=== PATIENT | female | born 1960 | race African-American/Black ===

== ENCOUNTER 2018-10-23 23:43 | Inpatient (IN) | payer OTHER ==
[2018-10-23] MEDS ORDERED: IPRATROPIUM/ALBUTEROL 0.5-2.5 MG/3 ML AMPUL NEB ONE (23:59)
[2018-10-24] MEDS ORDERED: IPRATROPIUM/ALBUTEROL 0.5-2.5 MG/3 ML AMPUL NEB ONE
[2018-10-24] MEDS ORDERED: ALBUTEROL SULFATE 0.083% NEB 2.5 MG/3 ML AMPUL NEB ONE
[2018-10-24] MEDS ORDERED: NORMAL SALINE 1000 ML 1,000 ML IV ONE
[2018-10-24] MEDS ORDERED: METHYLPREDNISOLONE INJ 125 MG/2 ML SDV IV ONE
[2018-10-24] MEDS ORDERED: MAGNESIUM SULFATE/D5W 1 GM/100 ML RTUPB IV ONE (00:01)
--- NOTE | 2018-10-24 00:03 | ER Document Report ---
ED General - General Chief Complaint: Shortness Of Breath Stated Complaint: SHORTNESS OF BREATH Time Seen by Provider: 10/24/18 00:00 Primary Care Provider: STAN BENAVIDES MD [ACTIVE STAFF] - Follow up as needed Cannot obtain history due to: Unstable vital signs Notes: Patient is a 58-year-old female with a past medical history of hypertension, diabetes, asthma, presents with 2 days of progressively worsening shortness of breath that became much worse in the past 4 to 5 hours. History is limited from the patient as she is in severe respiratory distress at the time of my initial assessment and unable to speak in complete sentences. Family at the bedside states that the patient has a long-standing history of asthma but is noncompliant with her meds occasions. They report the patient has been short of breath for the past 2 days but it became much worse in the past several hours. She does not have a nebulizer machine with her but did try her albuterol inhaler without relief. No obvious worsening factor. She has not had fever or infectious symptoms. She has a history of asthma exacerbations in the past but is never required intubation or hospitalization by her report. TRAVEL OUTSIDE OF THE [place] IN LAST 30 DAYS: No - Related Data Allergies/Adverse Reactions: amoxicillin [From Augmentin] Allergy (Verified 10/24/18 00:15) clavulanic acid [From Augmentin] Allergy (Verified 10/24/18 00:15) lisinopril Allergy (Verified 10/24/18 00:15) Past Medical History - General Information source: Relative Cannot obtain history due to: Unstable vital signs - Social History Smoking Status: Never Smoker Frequency of alcohol use: None Drug Abuse: None Lives with: Family Family History: Reviewed & Not Pertinent Review of Systems - Review of Systems Notes: Constitutional: Negative for fever. HENT: Negative for sore throat. Eyes: Negative for visual changes. Cardiovascular: Negative for chest pain. Respiratory: Positive for shortness of breath. Gastrointestinal: Negative for abdominal pain, vomiting or diarrhea. Genitourinary: Negative for dysuria. Musculoskeletal: Negative for back pain. Skin: Negative for rash. Neurological: Negative for headaches, weakness or numbness. 10 point ROS negative except as marked above and in HPI. Physical Exam - Vital signs Vitals: Pulse Ox 98 10/23/18 23:54 Interpretation: Tachycardic, Hypoxic, Tachypneic Notes: PHYSICAL EXAMINATION: GENERAL: Appears unwell, in moderate to severe respiratory distress HEAD: Atraumatic, normocephalic. EYES: Pupils equal round and reactive to light, extraocular movements intact, sclera anicteric, conjunctiva are normal. ENT: nares patent, oropharynx clear without exudates. Mildly dry mucous membranes. NECK: Normal range of motion, supple without lymphadenopathy LUNGS: Moderate to severe respiratory distress, supraclavicular retractions, diminished air movement in all lung valenzuela with coarse expiratory wheezing throughout. HEART: Regular tachycardia without murmurs ABDOMEN: Soft, nontender, normoactive bowel sounds. No guarding, no rebound. No masses appreciated. EXTREMITIES: no pitting or edema. No cyanosis. NEUROLOGICAL: No focal neurological deficits. Moves all extremities spontaneously and on command. PSYCH: Anxious but appropriate to situation SKIN: Warm, Dry, normal turgor, no rashes or lesions noted. Course - Re-evaluation Re-evalutation: 10/24/18 00:01 Patient presents in moderate respiratory distress, unable to speak in a full sentence, retracting in the supraclavicular space, unable to assess intercostal space secondary to obesity. Patient has diffuse expiratory wheezing and dimini shed air movement in all lung valenzuela consistent with a moderate to severe asthma exacerbation. She is visiting from out of town. Patient is saturating 91% on room air. She was placed on supplemental oxygen and continuous albuterol ipratropium nebulizers were immediately gone. IV access will be established and patient will be initiated on magnesium and Solu-Medrol as well as IV fluids. Labs and chest x-ray will be obtained. Patient has a history of asthma and apparently is noncompliant with her medications per family at the bedside. She denies any history of intubation or hospitalization secondary to her asthma. She is in guarded condition, will be reassessed at regular intervals. 10/24/18 00:38 Patient's work of breathing has not significantly improved on continuous nebulizers. She will be transition to BiPAP. Fluids, magnesium ongoing. 10/24/18 01:04 Patient is much improved on BiPAP. Ongoing scant wheezing throughout although air movement is markedly improved. Chest x-ray is clear without any evidence of acute infiltrate, cardiomegaly or pulmonary edema. Patient will require hospitalization given the degree of her exacerbation and is in agreement with this plan. 10/24/18 01:29 I discussed with the hospitalist Dr. Goldsmith who is accepted patient for admission. - Vital Signs Vital signs: Temp Pulse Resp BP Pulse Ox 99 F 33 H 164/92 H 100 10/23/18 23:57 10/24/18 01:03 10/24/18 01:03 10/24/18 01:03 - Laboratory Result Diagrams: 10/24/18 00:08 10/24/18 00:08 Laboratory results interpreted by me: 10/24/18 10/24/18 00:08 00:08 Hgb 11.9 L RDW 15.6 H Potassium 3.2 L Carbon Dioxide 32 H BUN 21 H Glucose 120 H - Diagnostic Test Radiology reviewed: Image reviewed, Reports reviewed Radiology results interpreted by me: 10/24/18 01:04 Chest x-ray: No acute infiltrate or pneumothorax Critical Care Note - Critical Care Note Total time excluding time spent on procedures (mins): 40 Comments: Critical care time spent obtaining history from patient or surrogate, development of treatment plan with patient or surrogate, evaluation of patient's response to treatment, examination of patient, ordering and performing treatments and interventions, ordering and review of laboratory studies, re- evaluation of patient's condition, ordering and review of radiographic studies and review of old charts Discharge - Discharge Clinical Impression: Respiratory distress Asthma exacerbation Qualifiers: Asthma severity: severe Asthma persistence: persistent Qualified Code(s): J45. 51 - Severe persistent asthma with (acute) exacerbation Condition: Fair Disposition: ADMITTED INPATIENT Admitting Provider: Agus (Hospitalist) Unit Admitted: IMCU Referrals: STAN BENAVIDES MD [ACTIVE STAFF] - Follow up as needed
[2018-10-24] MEDS: MAGNESIUM SULFATE/D5W 1 GM/100 ML RTUPB IV SCH ×2 (00:05→00:18)
[2018-10-24 00:34] LABS: ABSOLUTE EOSINOPHILS # (AUTO) 0.1 10^3/uL (0.0-0.6); ABSOLUTE LYMPHOCYTES (AUTO) 1.4 10^3/uL (0.5-4.7); ABSOLUTE MONOCYTES (AUTO) 0.6 10^3/uL (0.1-1.4); ABSOLUTE NEUT (AUTO) 4.4 10^3/uL (1.7-8.2); BASOPHILS % (AUTO) 0.5 % (0-2); EOSINOPHILS % (AUTO) 2.1 % (0-6); HEMOGLOBIN 11.9 g/dL (12.0-15.5); LYMPHOCYTES % (AUTO) 21.2 % (13-45); MEAN CORPUSCULAR HEMOGLOBIN 28.2 pg (27.0-33.4); MEAN CORPUSCULAR HGB CONC 32.2 g/dL (32.0-36.0); MEAN CORPUSCULAR VOLUME 88 fl (80-97); MONOCYTES % (AUTO) 9.6 % (3-13); PLATELET COUNT 290 10^3/uL (150-450); RED BLOOD COUNT 4.22 10^6/uL (3.72-5.28); RED CELL DISTRIBUTION WIDTH 15.6 % (11.5-14.0); SEGMENTED NEUTROPHILS % (AUTO) 66.6 % (42-78); TOTAL CELLS COUNTED % (AUTO) 100 %; WHITE BLOOD COUNT 6.6 10^3/uL (4.0-10.5)
--- NOTE | 2018-10-24 00:58 | RADIOLOGY REPORT (SQ) ---
XR CHEST 1 VIEW HISTORY: Shortness of breath. COMPARISON: None. FINDINGS: The heart size is normal. No consolidation, pleural effusion, or pneumothorax is seen. There are no acute bony findings. IMPRESSION: No evidence of acute cardiopulmonary disease.
[2018-10-24 01:08] LABS: ANION GAP 12 (5-19); BLOOD UREA NITROGEN 21 mg/dL (7-20); CALCIUM 9.1 mg/dL (8.4-10.2); CARBON DIOXIDE 32 mmol/L (22-30); CHLORIDE 99 mmol/L (98-107); GLUCOSE 120 mg/dL (75-110); POTASSIUM 3.2 mmol/L (3.6-5.0); SODIUM 142.7 mmol/L (137-145)
[2018-10-24] MEDS ORDERED: HYDRALAZINE HCL INJ/PF 20 MG/1 ML SDV IV PRN (01:21)
[2018-10-24] MEDS ORDERED: FUROSEMIDE INJ/PF 40 MG/4 ML SDV IV ONE (01:22)
[2018-10-24] MEDS ORDERED: IPRATROPIUM/ALBUTEROL 0.5-2.5 MG/3 ML AMPUL NEB PRN (01:22)
[2018-10-24] MEDS ORDERED: ACETAMINOPHEN 325 MG TABLET PO PRN (01:22)
[2018-10-24] MEDS: LEVOFLOXACIN 750 MG/D5W RTU 750 MG/150 ML RTUPB IV SCH ×2 (01:52→21:30)
[2018-10-24] MEDS: CHLORPHENIRAMINE MALEATE 4 MG TABLET PO SCH ×4 (01:53→21:10)
[2018-10-24] MEDS: POTASSI CL 20 MEQ/50 ML RIDER 20 MEQ/50 ML RTUPB IV SCH ×2 (02:03→03:46)
--- NOTE | 2018-10-24 05:25 | PDOC H&P ---
History of Present Illness Admission Date/PCP: 10/24/18 01:46 Patient complains of: Shortness of breath History of Present Illness: FREDDY SANCHEZ is a 58 year old female with a past medical history of hypertension, diabetes, asthma, obstructive sleep apnea and obesity. Patient presents with 48 hours of worsening shortness of breath associated with nonproductive cough followed by a known trigger of tobacco smoke. Patient admits rhinorrhea but denies sore throat or uncontrolled GERD. In the emergency room she is severely tachypneic with use of accessory muscles and retractions she receives albuterol, Atrovent, magnesium, Solu-Medrol and ultimately requ iring BiPAP with oxygen. Patient admits to missing several medications recently. She denies a history of requiring intubation. Past Medical History Cardiac Medical History: Reports: Congestive Heart Failure, Hypertension Pulmonary Medical History: Reports: Asthma Endocrine Medical History: Reports: Diabetes Mellitus Type 2 GI Medical History: Reports: Gastroesophageal Reflux Disease Past Surgical History Past Surgical History: Reports: Hysterectomy, Tonsillectomy Social History Information Source: Patient, Emergency Med Personnel, [facility] Records Lives with: Family Smoking Status: Former Smoker Frequency of Alcohol Use: None Hx Recreational Drug Use: No Drugs: None Hx Prescription Drug Abuse: No - Advance Directive Resuscitation Status: Full Code Family History Family History: COPD Parental Family History Reviewed: Yes Children Family History Reviewed: Yes Sibling(s) Family History Reviewed.: Yes Medication/Allergy Home Medications: Albuterol Sulfate [Proair Hfa Inhalation Aerosol 8.5 gm Mdi] 1 puff IH Q4 PRN 10/24/18 Budesonide/Formoterol Fumarate [Symbicort Hfa 80-4.5 Mcg Inhaler 6.9 gm] 2 puff IH DAILY 10/24/18 Cetirizine HCl [Zyrtec 10 mg Tablet] 1 tab PO DAILY 10/24/18 Esomeprazole Mag Trihydrate [Nexium] 40 mg PO DAILY 10/24/18 Hydralazine/Hydrochlorothiazid [Hydra-Zide 25-25 Capsule] 1 each PO DAILY 10/24/18 Hydralazine/Hydrochlorothiazid [Hydra-Zide 25-25 Capsule] 1 each PO DAILY 10/24/18 Metformin HCl 500 mg PO DAILY 10/24/18 Metoprolol Tartrate [Lopressor 25 mg Tablet] 25 mg PO DAILY 10/24/18 Montelukast Sodium [Singulair 10 mg Tablet] 10 mg PO QHS 10/24/18 Rosuvastatin Calcium [Crestor 20 mg Tablet] 20 mg PO DAILY 10/24/18 Telmisartan [Micardis 20 mg Tablet] 20 mg PO DAILY 10/24/18 Allergies/Adverse Reactions: amoxicillin [From Augmentin] Allergy (Verified 10/24/18 00:15) clavulanic acid [From Augmentin] Allergy (Verified 10/24/18 00:15) lisinopril Allergy (Verified 10/24/18 00:15) Review of Systems Constitutional: ABSENT: chills, fever(s), headache(s), weight gain, weight loss Eyes: ABSENT: visual disturbances Ears: ABSENT: hearing changes Cardiovascular: ABSENT: chest pain, dyspnea on exertion, edema, orthropnea, palpitations Respiratory: ABSENT: cough, hemoptysis Gastrointestinal: ABSENT: abdominal pain, constipation, diarrhea, hematemesis, hematochezia, nausea, vomiting Genitourinary: ABSENT: dysuria, hematuria Musculoskeletal: ABSENT: joint swelling Integumentary: ABSENT: rash, wounds Neurological: ABSENT: abnormal gait, abnormal speech, confusion, dizziness, focal weakness, syncope Psychiatric: ABSENT: anxiety, depression, homidical ideation, suicidal ideation Endocrine: ABSENT: cold intolerance, heat intolerance, polydipsia, polyuria Hematologic/Lymphatic: ABSENT: easy bleeding, easy bruising Physical Exam Vital Signs: Temp Pulse Resp BP Pulse Ox 98.4 F 100 20 149/81 H 100 10/24/18 03:07 10/24/18 03:07 10/24/18 03:07 10/24/18 03:07 10/24/18 03:07 Intake & Output 10/22/18 10/23/18 10/24/18 11:59 11:59 11:59 Intake Total 1315 Output Total 900 Balance 415 Weight 131.995 kg General appearance: PRESENT: cooperative, mild distress, morbidly obese. ABSENT: disheveled Head exam: PRESENT: atraumatic, normocephalic Eye exam: PRESENT: conjunctiva pink, EOMI, PERRLA. ABSENT: scleral icterus Ear exam: PRESENT: normal external ear exam Mouth exam: PRESENT: moist, tongue midline Neck exam: ABSENT: carotid bruit, JVD, lymphadenopathy, thyromegaly Respiratory exam: PRESENT: accessory muscle use, clear to auscultation aurora, crackles, retraction, symmetrical, tachypnea, wheezes. ABSENT: rhonchi Cardiovascular exam: PRESENT: +S1, +S2, tachycardia Pulses: PRESENT: normal dorsalis pedis pul Vascular exam: PRESENT: normal capillary refill GI/Abdominal exam: PRESENT: normal bowel sounds, soft. ABSENT: distended, guarding, mass, organolmegaly, rebound, tenderness Rectal exam: PRESENT: deferred Extremities exam: PRESENT: full ROM, +1 edema. ABSENT: calf tenderness Neurological exam: PRESENT: alert, awake, oriented to person, oriented to place, oriented to time, oriented to situation, CN II-XII grossly intact. ABSENT: motor sensory deficit Psychiatric exam: PRESENT: appropriate affect, normal mood. ABSENT: homicidal ideation, suicidal ideation Skin exam: PRESENT: dry, intact, warm. ABSENT: cyanosis, rash Results Laboratory Results: 10/24/18 00:08 10/24/18 00:08 10/24/18 10/24/18 00:08 00:08 WBC 6.6 RBC 4.22 Hgb 11.9 L Hct 37.0 MCV 88 MCH 28.2 MCHC 32.2 RDW 15.6 H Plt Count 290 Seg Neutrophils % 66.6 Lymphocytes % 21.2 Monocytes % 9.6 Eosinophils % 2.1 Basophils % 0.5 Absolute Neutrophils 4.4 Absolute Lymphocytes 1.4 Absolute Monocytes 0.6 Absolute Eosinophils 0.1 Absolute Basophils 0.0 Sodium 142.7 Potassium 3.2 L Chloride 99 Carbon Dioxide 32 H Anion Gap 12 BUN 21 H Creatinine 0.76 Est GFR ( Amer) > 60 Est GFR (Non-Af Amer) > 60 Glucose 120 H Calcium 9.1 10/24/18 00:08 NT-Pro-B Natriuret Pep < 11 Impressions: Chest X-Ray 10/24/18 00:01 IMPRESSION: No evidence of acute cardiopulmonary disease. Assessment and Plan - Diagnosis (1) Asthma exacerbation Qualifiers: Asthma severity: severe Asthma persistence: persistent Qualified Code(s): J45.51 - Severe persistent asthma with (acute) exacerbation Is this a current diagnosis for this admission?: Yes Plan: Chlorpheniramine, Flonase, prednisone, albuterol and Atrovent, supplemental oxygen with BiPAP. (2) Respiratory distress Is this a current diagnosis for this admission?: Yes Plan: Secondary to #1 and possible bronchitis. Empiric antibiotics. Supportive care (3) Diabetes Qualifiers: Diabetes mellitus type: type 2 Is this a current diagnosis for this admission?: Yes Plan: Outpatient regimen of Humalog sliding scale (4) Hypertension Is this a current diagnosis for this admission?: Yes Plan: Outpatient regiment with hydralazine as needed (5) Sleep apnea Is this a current diagnosis for this admission?: Yes Plan: BiPAP and education
[2018-10-24] MEDS: HEPARIN SOD (PORCINE) 5,000 UNIT/ML 1 ML SYRINGE SUBCUT SCH ×3 (05:37→21:29)
[2018-10-24] MEDS: METHYLPREDNISOLONE INJ 125 MG/2 ML SDV IV SCH ×2 (05:37→14:13)
[2018-10-24] MEDS ORDERED: DEXTROSE 40% GEL 15 GM TUBE PO PRN (07:00)
[2018-10-24] MEDS ORDERED: DEXTROSE 50%-WATER SYRINGE 12.5 GM/25 ML DOSE IV PRN (07:00)
[2018-10-24] MEDS ORDERED: GLUCAGON,HUMAN RECOMB 1 MG INJ IM PRN (07:00)
[2018-10-24] MEDS ORDERED: DEXTROSE 40% GEL 15 GM TUBE X 2 PO PRN (07:00)
[2018-10-24] MEDS ORDERED: DEXTROSE 50%-WATER SYRINGE 25 GM/50 ML DOSE IV PRN (07:00)
[2018-10-24] MEDS ORDERED: IPRATROPIUM/ALBUTEROL 0.5-2.5 MG/3 ML AMPUL NEB SCH (08:00)
--- NOTE | 2018-10-24 09:41 | EKG REPORT ---
SEVERITY:- ABNORMAL ECG - SINUS RHYTHM LEFT VENTRICULAR HYPERTROPHY : Confirmed by: Cecy Suarez MD 24-Oct-2018 09:40:38
[2018-10-24] MEDS: METOPROLOL TARTRATE 25 MG TABLET PO SCH (09:42)
[2018-10-24] MEDS: FLUTICASONE NASAL SPRAY 50 MCG/SPRY 120 SPRAY/16 GM NASL SCH ×2 (09:43→21:29)
[2018-10-24] MEDS: METFORMIN HCL 500 MG TABLET PO SCH (09:43)
[2018-10-24] MEDS: CETIRIZINE 10 MG TABLET PO SCH (09:43)
[2018-10-24] MEDS: HYDROCHLOROTHIAZIDE 25 MG TABLET PO SCH (09:43)
[2018-10-24] MEDS: PANTOPRAZOLE SODIUM 40 MG TABLET.DR PO SCH (09:43)
[2018-10-24] MEDS: LOSARTAN POTASSIUM 25 MG TABLET PO SCH (09:43)
[2018-10-24 09:47] LABS: ANION GAP 15 (5-19); BLOOD UREA NITROGEN 15 mg/dL (7-20); CALCIUM 9.4 mg/dL (8.4-10.2); CARBON DIOXIDE 29 mmol/L (22-30); CHLORIDE 99 mmol/L (98-107); GLUCOSE 192 mg/dL (75-110); POTASSIUM 4.1 mmol/L (3.6-5.0); SODIUM 143.4 mmol/L (137-145)
[2018-10-24] MEDS ORDERED: [UNRECOGNIZED DRUG - OTHER] PO SCH (10:00)
[2018-10-24] MEDS ORDERED: HYDRALAZINE PO SCH (10:00)
[2018-10-24] MEDS ORDERED: HYDRALAZINE HCL 25 MG TABLET PO SCH (10:00)
[2018-10-24] MEDS ORDERED: HYDROCHLOROTHIAZIDE PO SCH (10:00)
[2018-10-24] MEDS: INSULIN LISPRO 100 UNIT/ML 3 ML VIAL SUBCUT SCH ×4 (12:48→21:29)
[2018-10-24] MEDS: IPRATROPIUM/ALBUTEROL 0.5-2.5 MG/3 ML AMPUL NEB SCH ×4 (13:43→23:57)
--- NOTE | 2018-10-24 14:58 | PDOC PROGRESS REPORT ---
Subjective Progress Note for:: 10/24/18 Subjective:: This is a 58 year old female with a past medical history of hypertension, diabetes, asthma, obstructive sleep apnea and obesity who presented with increasing SOB and was admitted earlier this morning. She was noted to be tachypneic, hypoxic and had severe bilateral wheezes and was admitted for severe asthma exacerbation. On encounter, she is slightly tachypneic but saturating well on BIPAP. She says her SOB has slightly improved. She has significant bilateral wheezes. Reason For Visit: COPD EXACERBATION,PNEUMONIA Physical Exam Vital Signs: Temp Pulse Resp BP Pulse Ox 99.2 F 96 14 151/98 H 96 10/24/18 12:13 10/24/18 13:43 10/24/18 13:43 10/24/18 12:13 10/24/18 13:43 Intake & Output 10/23/18 10/24/18 10/25/18 06:59 06:59 06:59 Intake Total 1365 Output Total 2225 400 Balance -860 -400 Weight 289 lb 3.944 oz General appearance: PRESENT: mild distress, obese Head exam: PRESENT: atraumatic, normocephalic Eye exam: PRESENT: conjunctiva pink, EOMI, PERRLA. ABSENT: scleral icterus Ear exam: PRESENT: normal external ear exam Mouth exam: PRESENT: moist, tongue midline Neck exam: ABSENT: carotid bruit, JVD, lymphadenopathy, thyromegaly Respiratory exam: PRESENT: rhonchi, wheezes. ABSENT: rales Cardiovascular exam: PRESENT: RRR. ABSENT: diastolic murmur, rubs, systolic murmur Pulses: PRESENT: normal dorsalis pedis pul GI/Abdominal exam: PRESENT: normal bowel sounds, soft. ABSENT: distended, guarding, mass, organolmegaly, rebound, tenderness Rectal exam: PRESENT: deferred Extremities exam: PRESENT: +1 edema Neurological exam: PRESENT: alert, awake, oriented to person, oriented to place, oriented to time, oriented to situation, CN II-XII grossly intact. ABSENT: motor sensory deficit Results Laboratory Results: 10/24/18 00:08 10/24/18 09:13 10/24/18 10/24/18 10/24/18 00:08 00:08 09:13 WBC 6.6 RBC 4.22 Hgb 11.9 L Hct 37.0 MCV 88 MCH 28.2 MCHC 32.2 RDW 15.6 H Plt Count 290 Seg Neutrophils % 66.6 Lymphocytes % 21.2 Monocytes % 9.6 Eosinophils % 2.1 Basophils % 0.5 Absolute Neutrophils 4.4 Absolute Lymphocytes 1.4 Absolute Monocytes 0.6 Absolute Eosinophils 0.1 Absolute Basophils 0.0 Sodium 142.7 143.4 Potassium 3.2 L 4.1 Chloride 99 99 Carbon Dioxide 32 H 29 Anion Gap 12 15 BUN 21 H 15 Creatinine 0.76 0.78 Est GFR ( Amer) > 60 > 60 Est GFR (Non-Af Amer) > 60 > 60 Glucose 120 H 192 H Calcium 9.1 9.4 Magnesium 2.2 TSH 10/24/18 09:13 WBC RBC Hgb Hct MCV MCH MCHC RDW Plt Count Seg Neutrophils % Lymphocytes % Monocytes % Eosinophils % Basophils % Absolute Neutrophils Absolute Lymphocytes Absolute Monocytes Absolute Eosinophils Absolute Basophils Sodium Potassium Chloride Carbon Dioxide Anion Gap BUN Creatinine Est GFR ( Amer) Est GFR (Non-Af Amer) Glucose Calcium Magnesium TSH 0.45 L 10/24/18 00:08 NT-Pro-B Natriuret Pep < 11 Impressions: Chest X-Ray 10/24/18 00:01 IMPRESSION: No evidence of acute cardiopulmonary disease. Assessment and Plan - Diagnosis (1) Acute respiratory failure with hypoxia Is this a current diagnosis for this admission?: Yes Plan: Secondary to severe asthma exacerbation. On BIPAP. (2) Asthma exacerbation Qualifiers: Asthma severity: severe Asthma persistence: persistent Qualified Code(s): J45.51 - Severe persistent asthma with (acute) exacerbation Is this a current diagnosis for this admission?: Yes Plan: Currently on solumedrol 125 mg q8. Adjust solumedrol to 40 mg q8h. Revise and increase breathing treatment to duoneb q4 scheduled. (3) Hypertension Is this a current diagnosis for this admission?: Yes Plan: Continue HCTZ and losartan. Hold lopressor for now. - Time Time Spent with patient: 25-34 minutes
[2018-10-24 15:47] LABS: FREE T3 3.59 pg/mL (2.77-5.27); FREE T4 (FREE THYROXINE) 1.15 ng/dL (0.78-2.19)
[2018-10-24] MEDS: METHYLPREDNISOLONE INJ 40 MG/1 ML SDV IV SCH ×2 (15:47→21:29)
[2018-10-24] MEDS ORDERED: CHLORPHENIRAMINE MALEATE 4 MG TABLET ONE (20:45)
[2018-10-24] MEDS: MONTELUKAST SODIUM 10 MG TABLET PO SCH (21:29)
[2018-10-24] MEDS: ATORVASTATIN CALCIUM 40 MG TABLET PO SCH (21:29)
[2018-10-25] MEDS: IPRATROPIUM/ALBUTEROL 0.5-2.5 MG/3 ML AMPUL NEB SCH ×5 (03:50→19:55)
[2018-10-25] MEDS: METHYLPREDNISOLONE INJ 40 MG/1 ML SDV IV SCH (05:37)
[2018-10-25] MEDS: HEPARIN SOD (PORCINE) 5,000 UNIT/ML 1 ML SYRINGE SUBCUT SCH ×3 (05:37→21:16)
[2018-10-25 06:20] LABS: ABSOLUTE MONOCYTES (AUTO) 0.6 10^3/uL (0.1-1.4); ABSOLUTE NEUT (AUTO) 14.6 10^3/uL (1.7-8.2); BASOPHILS % (AUTO) 0.2 % (0-2); HEMATOCRIT 34.4 % (36.0-47.0); HEMOGLOBIN 11.1 g/dL (12.0-15.5); LYMPHOCYTES % (AUTO) 6.4 % (13-45); MEAN CORPUSCULAR HEMOGLOBIN 28.2 pg (27.0-33.4); MEAN CORPUSCULAR HGB CONC 32.3 g/dL (32.0-36.0); MEAN CORPUSCULAR VOLUME 87 fl (80-97); MONOCYTES % (AUTO) 3.6 % (3-13); PLATELET COUNT 299 10^3/uL (150-450); RED BLOOD COUNT 3.95 10^6/uL (3.72-5.28); RED CELL DISTRIBUTION WIDTH 15.9 % (11.5-14.0); SEGMENTED NEUTROPHILS % (AUTO) 89.8 % (42-78); TOTAL CELLS COUNTED % (AUTO) 100 %
[2018-10-25 06:26] LABS: WHITE BLOOD COUNT 16.2 10^3/uL (4.0-10.5)
[2018-10-25 06:35] LABS: ANION GAP 12 (5-19); BLOOD UREA NITROGEN 22 mg/dL (7-20); CALCIUM 9.5 mg/dL (8.4-10.2); CARBON DIOXIDE 30 mmol/L (22-30); CHLORIDE 99 mmol/L (98-107); GLUCOSE 140 mg/dL (75-110); POTASSIUM 4.1 mmol/L (3.6-5.0); SODIUM 141.4 mmol/L (137-145)
[2018-10-25] MEDS: INSULIN LISPRO 100 UNIT/ML 3 ML VIAL SUBCUT SCH ×4 (08:13→21:12)
[2018-10-25] MEDS: LOSARTAN POTASSIUM 25 MG TABLET PO SCH (09:13)
[2018-10-25] MEDS: METFORMIN HCL 500 MG TABLET PO SCH (09:13)
[2018-10-25] MEDS: CETIRIZINE 10 MG TABLET PO SCH (09:14)
[2018-10-25] MEDS: HYDROCHLOROTHIAZIDE 25 MG TABLET PO SCH (09:14)
[2018-10-25] MEDS: PANTOPRAZOLE SODIUM 40 MG TABLET.DR PO SCH (09:14)
[2018-10-25] MEDS: FLUTICASONE NASAL SPRAY 50 MCG/SPRY 120 SPRAY/16 GM NASL SCH ×2 (09:15→21:20)
--- NOTE | 2018-10-25 12:08 | PDOC PROGRESS REPORT ---
Subjective Progress Note for:: 10/25/18 Subjective:: This is a 58 year old female with a past medical history of hypertension, diabetes, asthma, obstructive sleep apnea and obesity who presented with increasing SOB and was admitted earlier this morning. She was noted to be tachypneic, hypoxic and had severe bilateral wheezes and was admitted for severe asthma exacerbation. On encounter, she is slightly tachypneic but saturating well on BIPAP. She says her SOB has slightly improved. She has significant bilateral wheezes. 10/25: No acute event overnight. She has been weaned off BIPAP and is saturating well on nalsa cannula. She says her SOB has significantly improved but she is not at her baseline yet. Wheezing has significantly improved today and she has minimal wheezes on the bases. Will further decrease her IV steroids and possibly switch her to PO later today is she continues to do better. Reason For Visit: COPD EXACERBATION,PNEUMONIA Physical Exam Vital Signs: Temp Pulse Resp BP Pulse Ox 97.5 F 103 H 24 H 123/68 93 10/25/18 03:38 10/25/18 07:56 10/25/18 07:56 10/25/18 07:00 10/25/18 07:56 Intake & Output 10/24/18 10/25/18 10/26/18 06:59 06:59 06:59 Intake Total 1365 370 Output Total 2225 400 Balance -860 -30 Weight 289 lb 3.944 oz 288 lb 12.889 oz General appearance: PRESENT: no acute distress, obese Head exam: PRESENT: atraumatic, normocephalic Eye exam: PRESENT: conjunctiva pink, EOMI, PERRLA. ABSENT: scleral icterus Ear exam: PRESENT: normal external ear exam Mouth exam: PRESENT: moist, tongue midline Neck exam: ABSENT: carotid bruit, JVD, lymphadenopathy, thyromegaly Respiratory exam: PRESENT: wheezes. ABSENT: rales, rhonchi Cardiovascular exam: PRESENT: RRR. ABSENT: diastolic murmur, rubs, systolic murmur Pulses: PRESENT: normal dorsalis pedis pul GI/Abdominal exam: PRESENT: normal bowel sounds, soft. ABSENT: distended, guarding, mass, organolmegaly, rebound, tenderness Rectal exam: PRESENT: deferred Extremities exam: PRESENT: full ROM, +1 edema. ABSENT: calf tenderness, clubbing, pedal edema Neurological exam: PRESENT: alert, awake, oriented to person, oriented to place, oriented to time, oriented to situation, CN II-XII grossly intact. ABSENT: motor sensory deficit Psychiatric exam: PRESENT: appropriate affect, normal mood. ABSENT: homicidal ideation, suicidal ideation Results Laboratory Results: 10/25/18 05:19 10/25/18 05:19 10/24/18 10/25/18 10/25/18 09:13 05: 05:19 WBC 16.2 H D RBC 3.95 Hgb 11.1 L Hct 34.4 L MCV 87 MCH 28.2 MCHC 32.3 RDW 15.9 H Plt Count 299 Seg Neutrophils % 89.8 H Lymphocytes % 6.4 L Monocytes % 3.6 Eosinophils % 0.0 Basophils % 0.2 Absolute Neutrophils 14.6 H Absolute Lymphocytes 1.0 Absolute Monocytes 0.6 Absolute Eosinophils 0.0 Absolute Basophils 0.0 Sodium 141.4 Potassium 4.1 Chloride 99 Carbon Dioxide 30 Anion Gap 12 BUN 22 H Creatinine 0.93 Est GFR ( Amer) > 60 Est GFR (Non-Af Amer) > 60 Glucose 140 H Calcium 9.5 Free T4 1.15 Free T3 pg/mL 3.59 10/24/18 00:08 NT-Pro-B Natriuret Pep < 11 Impressions: Chest X-Ray 10/24/18 00:01 IMPRESSION: No evidence of acute cardiopulmonary disease. Assessment and Plan - Diagnosis (1) Acute respiratory failure with hypoxia Is this a current diagnosis for this admission?: Yes Plan: Secondary to severe asthma exacerbation. On BIPAP. 10/25: She has been weaned off BIPAP and is saturating well on nalsa cannula. She says her SOB has significantly improved but she is not at her baseline yet. Wheezing has significantly improved today and she has minimal wheezes on the bases. (2) Asthma exacerbation Qualifiers: Asthma severity: severe Asthma persistence: persistent Qualified Code(s): J45.51 - Severe persistent asthma with (acute) exacerbation Is this a current diagnosis for this admission?: Yes Plan: Currently on solumedrol 125 mg q8. Adjust solumedrol to 40 mg q8h. Revise and increase breathing treatment to duoneb q4 scheduled. 10/25: Will further decrease her IV steroids to q12h and possibly switch her to PO later today is she continues to do better. (3) Hypertension Is this a current diagnosis for this admission?: Yes Plan: Continue HCTZ and losartan. Hold lopressor for now. - Time Time Spent with patient: 15-24 minutes
[2018-10-25] MEDS: PREDNISONE 20 MG TABLET PO SCH (18:22)
[2018-10-25] MEDS: LEVOFLOXACIN 750 MG/D5W RTU 750 MG/150 ML RTUPB IV SCH (21:16)
[2018-10-25] MEDS: MONTELUKAST SODIUM 10 MG TABLET PO SCH (21:16)
[2018-10-25] MEDS: ATORVASTATIN CALCIUM 40 MG TABLET PO SCH (21:20)
[2018-10-25] MEDS ORDERED: METHYLPREDNISOLONE INJ 40 MG/1 ML SDV IV SCH (22:00)
[2018-10-26] MEDS: IPRATROPIUM/ALBUTEROL 0.5-2.5 MG/3 ML AMPUL NEB SCH ×7 (00:41→23:45)
[2018-10-26] MEDS: HEPARIN SOD (PORCINE) 5,000 UNIT/ML 1 ML SYRINGE SUBCUT SCH ×3 (05:07→22:57)
[2018-10-26] MEDS: INSULIN LISPRO 100 UNIT/ML 3 ML VIAL SUBCUT SCH ×4 (07:36→23:11)
[2018-10-26] MEDS ORDERED: ALBUTEROL SULFATE HFA (90 MCG/PUFF) 200 PUFF/8.5 GM MDI IH PRN (08:02)
[2018-10-26 08:37] LABS: ABSOLUTE BASOPHILS # (AUTO) 0.1 10^3/uL (0.0-0.2); ABSOLUTE LYMPHOCYTES (AUTO) 1.4 10^3/uL (0.5-4.7); ABSOLUTE MONOCYTES (AUTO) 0.4 10^3/uL (0.1-1.4); ABSOLUTE NEUT (AUTO) 16.7 10^3/uL (1.7-8.2); BASOPHILS % (AUTO) 0.3 % (0-2); HEMATOCRIT 36.5 % (36.0-47.0); HEMOGLOBIN 11.6 g/dL (12.0-15.5); LYMPHOCYTES % (AUTO) 7.4 % (13-45); MEAN CORPUSCULAR HGB CONC 31.8 g/dL (32.0-36.0); MEAN CORPUSCULAR VOLUME 88 fl (80-97); PLATELET COUNT 317 10^3/uL (150-450); RED BLOOD COUNT 4.13 10^6/uL (3.72-5.28); RED CELL DISTRIBUTION WIDTH 16.2 % (11.5-14.0); SEGMENTED NEUTROPHILS % (AUTO) 90.3 % (42-78); TOTAL CELLS COUNTED % (AUTO) 100 %; WHITE BLOOD COUNT 18.4 10^3/uL (4.0-10.5)
[2018-10-26 08:56] LABS: ALANINE AMINOTRANSFERASE 15 U/L (9-52); ALBUMIN 4.4 g/dL (3.5-5.0); ALKALINE PHOSPHATASE 87 U/L (38-126); ANION GAP 15 (5-19); ASPARTATE AMINO TRANSFERASE 23 U/L (14-36); BILIRUBIN,DIRECT 0.2 mg/dL (0.0-0.4); BILIRUBIN,TOTAL 0.4 mg/dL (0.2-1.3); BLOOD UREA NITROGEN 23 mg/dL (7-20); CALCIUM 9.9 mg/dL (8.4-10.2); CARBON DIOXIDE 29 mmol/L (22-30); CHLORIDE 98 mmol/L (98-107); GLUCOSE 151 mg/dL (75-110); POTASSIUM 4.2 mmol/L (3.6-5.0); SODIUM 142.3 mmol/L (137-145)
[2018-10-26] MEDS: PREDNISONE 20 MG TABLET PO SCH ×2 (09:13→17:07)
[2018-10-26] MEDS: LOSARTAN POTASSIUM 25 MG TABLET PO SCH (09:13)
[2018-10-26] MEDS: HYDROCHLOROTHIAZIDE 25 MG TABLET PO SCH (09:13)
[2018-10-26] MEDS: PANTOPRAZOLE SODIUM 40 MG TABLET.DR PO SCH (09:14)
[2018-10-26] MEDS: FLUTICASONE NASAL SPRAY 50 MCG/SPRY 120 SPRAY/16 GM NASL SCH ×2 (09:14→22:57)
[2018-10-26] MEDS: ASPIRIN 81 MG TABLET, ENT COATED PO SCH (09:14)
[2018-10-26] MEDS: CETIRIZINE 10 MG TABLET PO SCH (09:14)
[2018-10-26] MEDS: METFORMIN HCL 500 MG TABLET PO SCH (09:14)
[2018-10-26] MEDS: FLUTICASONE/VILANTEROL 100-25 MCG/DOSE IH SCH (09:25)
--- NOTE | 2018-10-26 11:07 | PDOC PROGRESS REPORT ---
Subjective Progress Note for:: 10/26/18 Subjective:: 58 year old female with a past medical history of hypertension, diabetes, asthma, obstructive sleep apnea and obesity. Patient presents with 48 hours of worsening shortness of breath associated with nonproductive cough followed by a known trigger of tobacco smoke. Patient admits rhinorrhea but denies sore throat or uncontrolled GERD. In the emergency room she is severely tachypneic with use of accessory muscles and retractions she receives albuterol, Atrovent, magnesium, Solu-Medrol and ultimately requiring BiPAP with oxygen. Patient admits to missing several medications recently. She denies a history of requiring intubation. 10/26/[id number]-iadn-old female admitted for asthma exacerbation. Presently on levo floxacillin IV, getting scheduled and nebulizer treatments. She is using BiPAP on as needed basis. Pulse ox is 95% on 2 L this morning. Complaining of cough requesting cough medication. Recently on prednisone 40 mg p.o. twice a day. plan is to cut down the prednisone to 20 mg p.o. twice daily. Comfortable in the chair communicating well. On deep breathing getting into coughing spells. Reason For Visit: COPD EXACERBATION,PNEUMONIA Physical Exam Vital Signs: Temp Pulse Resp BP Pulse Ox 98.2 F 101 H 18 110/67 95 10/26/18 07:35 10/26/18 08:32 10/26/18 08:32 10/26/18 07:35 10/26/18 08:32 Intake & Output 10/25/18 10/26/18 10/27/18 06:59 06:59 06:59 Intake Total 370 720 Output Total 400 4 Balance -30 716 Weight 131 kg 130.5 kg General appearance: PRESENT: no acute distress, obese Head exam: PRESENT: atraumatic Eye exam: PRESENT: PERRLA Mouth exam: PRESENT: moist, tongue midline Neck exam: ABSENT: carotid bruit, JVD, lymphadenopathy, thyromegaly Respiratory exam: PRESENT: decreased breath sounds Cardiovascular exam: PRESENT: tachycardia GI/Abdominal exam: PRESENT: normal bowel sounds, soft. ABSENT: distended, guarding, mass, organolmegaly, rebound, tenderness Rectal exam: PRESENT: deferred Extremities exam: PRESENT: full ROM. ABSENT: calf tenderness, clubbing, pedal edema Neurological exam: PRESENT: alert, awake, oriented to person, oriented to place, oriented to time, oriented to situation, CN II-XII grossly intact. ABSENT: motor sensory deficit Psychiatric exam: PRESENT: appropriate affect, normal mood. ABSENT: homicidal ideation, suicidal ideation Results Laboratory Results: 10/26/18 08:22 10/26/18 08:22 10/26/18 10/26/18 08:22 08:22 WBC 18.4 H RBC 4.13 Hgb 11.6 L Hct 36.5 MCV 88 MCH 28.0 MCHC 31.8 L RDW 16.2 H Plt Count 317 Seg Neutrophils % 90.3 H Lymphocytes % 7.4 L Monocytes % 2.0 L Eosinophils % 0.0 Basophils % 0.3 Absolute Neutrophils 16.7 H Absolute Lymphocytes 1.4 Absolute Monocytes 0.4 Absolute Eosinophils 0.0 Absolute Basophils 0.1 Sodium 142.3 Potassium 4.2 Chloride 98 Carbon Dioxide 29 Anion Gap 15 BUN 23 H Creatinine 0.93 Est GFR ( Amer) > 60 Est GFR (Non-Af Amer) > 60 Glucose 151 H Calcium 9.9 Magnesium 2.4 H Total Bilirubin 0.4 AST 23 ALT 15 Alkaline Phosphatase 87 Total Protein 8.0 Albumin 4.4 10/24/18 00:08 NT-Pro-B Natriuret Pep < 11 Impressions: Chest X-Ray 10/24/18 00:01 IMPRESSION: No evidence of acute cardiopulmonary disease. Assessment and Plan - Diagnosis (1) Acute respiratory failure with hypoxia Is this a current diagnosis for this admission?: Yes Plan: Secondary to severe asthma exacerbation. On BIPAP. 10/25: She has been weaned off BIPAP and is saturating well on nalsa cannula. She says her SOB has significantly improved but she is not at her baseline yet. Wheezing has significantly improved today and she has minimal wheezes on the bases. 10/26/2018-on examination patient is on 2 L oxygen pulse ox 95%. BiPAP at bedside. Patient states shortness of breath slightly improved. On examination chest bilateral wheezing is present on deep breathing patient is having the coughing spells. Plan is to continue with the nebulizer treatments continue BiPAP on as needed basis, to decreasethe prednisone to 20 mg twice a day. Patient is complaining of coughing up thick whitish to yellow sputum presently on IV levo floxacillin. (2) Asthma exacerbation Qualifiers: Asthma severity: severe Asthma persistence: persistent Qualified Code(s): J45.51 - Severe persistent asthma with (acute) exacerbation Is this a current diagnosis for this admission?: Yes Plan: Currently on solumedrol 125 mg q8. Adjust solumedrol to 40 mg q8h. Revise and increase breathing treatment to duoneb q4 scheduled. 10/25: Will further decrease her IV steroids to q12h and possibly switch her to PO later today is she continues to do better. 10/26/2018-she has history of asthma admitted with asthma exacerbation presently on prednisone 40 mg p.o. twice a day plan is to decrease the dose to 20 mg p.o. twice a day today. (3) Hypertension Is this a current diagnosis for this admission?: Yes Plan: Continue HCTZ and losartan. Hold lopressor for now. 10/26/2018-patient blood pressure now is 110/67 presently on hydrochlorothiazide and losartan. Plan is to continue the present management. pt is tachycardic on examination plan is to restart metoprolol. (4) Diabetes Qualifiers: Diabetes mellitus type: type 2 Is this a current diagnosis for this admission?: Yes Plan: Outpatient regimen of Humalog sliding scale 10/26/2018-patient has history of type 2 diabetes mellitus. Hemoglobin A1c is 5.9. Latest blood sugar is 151 most likely secondary to steroid therapy. Diet compliant with medication was advised that a consult was requested. (5) Sleep apnea Is this a current diagnosis for this admission?: Yes Plan: BiPAP and education 10/26/2018-patient has history of sleep apnea not on CPAP or BiPAP at home. Plans to make arrangements for outpatient sleep study. (6) Morbid obesity with BMI of 45.0-49.9, adult Is this a current diagnosis for this admission?: No Plan: 10/26/2018-patient has history of morbid obesity BMI is more than 46 diet exercise weight loss lifestyle modifications are discussed with the patient. Dietary consult was requested. - Time Time Spent with patient: 25-34 minutes Medications reviewed and adjusted accordingly: Yes Anticipated discharge: Home
[2018-10-26] MEDS ORDERED: GUAIFENESIN/CODEINE PHOS 100-10 MG/ 5 ML UDC PO PRN (11:10)
[2018-10-26] MEDS: ATORVASTATIN CALCIUM 40 MG TABLET PO SCH (22:58)
[2018-10-26] MEDS: LEVOFLOXACIN 750 MG/D5W RTU 750 MG/150 ML RTUPB IV SCH (22:58)
[2018-10-26] MEDS: MONTELUKAST SODIUM 10 MG TABLET PO SCH (22:58)
[2018-10-27] MEDS: IPRATROPIUM/ALBUTEROL 0.5-2.5 MG/3 ML AMPUL NEB SCH ×5 (03:52→20:08)
[2018-10-27 05:49] LABS: ABSOLUTE BASOPHILS # (AUTO) 0.1 10^3/uL (0.0-0.2); ABSOLUTE MONOCYTES (AUTO) 0.9 10^3/uL (0.1-1.4); ABSOLUTE NEUT (AUTO) 15.8 10^3/uL (1.7-8.2); BASOPHILS % (AUTO) 0.4 % (0-2); HEMATOCRIT 35.9 % (36.0-47.0); HEMOGLOBIN 11.3 g/dL (12.0-15.5); LYMPHOCYTES % (AUTO) 10.4 % (13-45); MEAN CORPUSCULAR HGB CONC 31.5 g/dL (32.0-36.0); MEAN CORPUSCULAR VOLUME 89 fl (80-97); MONOCYTES % (AUTO) 4.6 % (3-13); PLATELET COUNT 285 10^3/uL (150-450); RED BLOOD COUNT 4.04 10^6/uL (3.72-5.28); RED CELL DISTRIBUTION WIDTH 16.2 % (11.5-14.0); SEGMENTED NEUTROPHILS % (AUTO) 84.6 % (42-78); TOTAL CELLS COUNTED % (AUTO) 100 %; WHITE BLOOD COUNT 18.7 10^3/uL (4.0-10.5)
[2018-10-27 06:12] LABS: ALANINE AMINOTRANSFERASE 25 U/L (9-52); ALKALINE PHOSPHATASE 116 U/L (38-126); ANION GAP 11 (5-19); ASPARTATE AMINO TRANSFERASE 19 U/L (14-36); BILIRUBIN,DIRECT 0.2 mg/dL (0.0-0.4); BILIRUBIN,TOTAL 0.4 mg/dL (0.2-1.3); BLOOD UREA NITROGEN 22 mg/dL (7-20); CALCIUM 9.6 mg/dL (8.4-10.2); CARBON DIOXIDE 32 mmol/L (22-30); CHLORIDE 99 mmol/L (98-107); GLUCOSE 143 mg/dL (75-110); POTASSIUM 4.2 mmol/L (3.6-5.0); SODIUM 142.1 mmol/L (137-145); TOTAL PROTEIN 7.3 g/dL (6.3-8.2)
[2018-10-27] MEDS: HEPARIN SOD (PORCINE) 5,000 UNIT/ML 1 ML SYRINGE SUBCUT SCH ×3 (06:34→21:35)
[2018-10-27] MEDS: INSULIN LISPRO 100 UNIT/ML 3 ML VIAL SUBCUT SCH ×4 (07:37→21:30)
[2018-10-27] MEDS: HYDROCHLOROTHIAZIDE 25 MG TABLET PO SCH (07:47)
--- NOTE | 2018-10-27 08:34 | PDOC PROGRESS REPORT ---
Subjective Progress Note for:: 10/27/18 Subjective:: 58 year old female with a past medical history of hypertension, diabetes, asthma, obstructive sleep apnea and obesity. Patient presents with 48 hours of worsening shortness of breath associated with nonproductive cough followed by a known trigger of tobacco smoke. Patient admits rhinorrhea but denies sore throat or uncontrolled GERD. In the emergency room she is severely tachypneic with use of accessory muscles and retractions she receives albuterol, Atrovent, magnesium, Solu-Medrol and ultimately requiring BiPAP with oxygen. Patient admits to missing several medications recently. She denies a history of requiring intubation. 10/26/[id number]-aaff-old female admitted for asthma exacerbation. Presently on levo floxacillin IV, getting scheduled and nebulizer treatments. She is using BiPAP on as needed basis. Pulse ox is 95% on 2 L this morning. Complaining of cough requesting cough medication. Recently on prednisone 40 mg p.o. twice a day. plan is to cut down the prednisone to 20 mg p.o. twice daily. Comfortable in the chair communicating well. On deep breathing getting into coughing spells. [id number] female with multiple medical problems including diabetes mellitus, hypertension, obstructive sleep apnea, obesity, treated with asthma exacerbation. She still coughing up yellowish colored sputum. Presently on levo floxacillin IV 500 mg daily. She is off the BiPAP. Pulse oxes 100% on 2 L. On deep breathing still having the excessive coughing spells. Managed to do the CT chest without contrast today continue antibiotic therapy continue the cough medication probable discharge home tomorrow. Reason For Visit: COPD EXACERBATION,PNEUMONIA Physical Exam Vital Signs: Temp Pulse Resp BP Pulse Ox 97.4 F 101 H 18 126/80 H 100 10/27/18 04:00 10/27/18 04:00 10/27/18 04:00 10/27/18 04:00 10/27/18 04:00 Intake & Output 10/26/18 10/27/18 10/28/18 06:59 06:59 06:59 Intake Total 720 801 Output Total 4 Balance 716 801 Weight 130.5 kg 130.1 kg General appearance: PRESENT: mild distress, obese Head exam: PRESENT: atraumatic Eye exam: PRESENT: PERRLA Mouth exam: PRESENT: moist, tongue midline Teeth exam: PRESENT: poor dentation Neck exam: ABSENT: carotid bruit, JVD, lymphadenopathy, thyromegaly Respiratory exam: PRESENT: decreased breath sounds, wheezes Cardiovascular exam: PRESENT: tachycardia Pulses: PRESENT: normal dorsalis pedis pul GI/Abdominal exam: PRESENT: normal bowel sounds, soft. ABSENT: distended, guarding, mass, organolmegaly, rebound, tenderness Extremities exam: PRESENT: full ROM. ABSENT: calf tenderness, clubbing, pedal edema Neurological exam: PRESENT: alert, awake, oriented to person, oriented to place, oriented to time, oriented to situation, CN II-XII grossly intact. ABSENT: motor sensory deficit Psychiatric exam: PRESENT: appropriate affect, normal mood. ABSENT: homicidal ideation, suicidal ideation Results Laboratory Results: 10/27/18 05:01 10/27/18 05:01 10/26/18 10/26/18 10/27/18 08:22 08:22 05:01 WBC 18.4 H 18.7 H RBC 4.13 4.04 Hgb 11.6 L 11.3 L Hct 36.5 35.9 L MCV 88 89 MCH 28.0 28.0 MCHC 31.8 L 31.5 L RDW 16.2 H 16.2 H Plt Count 317 285 Seg Neutrophils % 90.3 H 84.6 H Lymphocytes % 7.4 L 10.4 L Monocytes % 2.0 L 4.6 Eosinophils % 0.0 0.0 Basophils % 0.3 0.4 Absolute Neutrophils 16.7 H 15.8 H Absolute Lymphocytes 1.4 2.0 Absolute Monocytes 0.4 0.9 Absolute Eosinophils 0.0 0.0 Absolute Basophils 0.1 0.1 Sodium 142.3 Potassium 4.2 Chloride 98 Carbon Dioxide 29 Anion Gap 15 BUN 23 H Creatinine 0.93 Est GFR ( Amer) > 60 Est GFR (Non-Af Amer) > 60 Glucose 151 H Calcium 9.9 Magnesium 2.4 H Total Bilirubin 0.4 AST 23 ALT 15 Alkaline Phosphatase 87 Total Protein 8.0 Albumin 4.4 10/27/18 05:01 WBC RBC Hgb Hct MCV MCH MCHC RDW Plt Count Seg Neutrophils % Lymphocytes % Monocytes % Eosinophils % Basophils % Absolute Neutrophils Absolute Lymphocytes Absolute Monocytes Absolute Eosinophils Absolute Basophils Sodium 142.1 Potassium 4.2 Chloride 99 Carbon Dioxide 32 H Anion Gap 11 BUN 22 H Creatinine 0.79 Est GFR ( Amer) > 60 Est GFR (Non-Af Amer) > 60 Glucose 143 H Calcium 9.6 Magnesium 2.5 H Total Bilirubin 0.4 AST 19 ALT 25 Alkaline Phosphatase 116 Total Protein 7.3 Albumin 4.0 10/24/18 00:08 NT-Pro-B Natriuret Pep < 11 Impressions: Chest X-Ray 10/24/18 00:01 IMPRESSION: No evidence of acute cardiopulmonary disease. Assessment and Plan - Diagnosis (1) Acute respiratory failure with hypoxia Is this a current diagnosis for this admission?: Yes Plan: Secondary to severe asthma exacerbation. On BIPAP. 10/25: She has been weaned off BIPAP and is saturating well on nalsa cannula. She says her SOB has significantly improved but she is not at her baseline yet. Wheezing has significantly improved today and she has minimal wheezes on the bases. 10/26/2018-on examination patient is on 2 L oxygen pulse ox 95%. BiPAP at bedside. Patient states shortness of breath slightly improved. On examination chest bilateral wheezing is present on deep breathing patient is having the coughing spells. Plan is to continue with the nebulizer treatments continue BiP AP on as needed basis, to decrease the prednisone to 20 mg twice a day. Patient is complaining of coughing up thick whitish to yellow sputum presently on IV levo floxacillin. 10/27/[id number]-kxnf-old female admitted for asthma exacerbation pulse ox today 100% on 2 L. Patient is off the BiPAP. Gently on prednisone 20 mg twice a day, IV levofloxacin 500 mg daily, scheduled and as needed nebulizations. On examination chest bilateral entry was decreased bilateral mild wheezing is present , much improved compared to yesterday. (2) Asthma exacerbation Qualifiers: Asthma severity: severe Asthma persistence: persistent Qualified Code(s): J45.51 - Severe persistent asthma with (acute) exacerbation Is this a current diagnosis for this admission?: Yes Plan: Currently on solumedrol 125 mg q8. Adjust solumedrol to 40 mg q8h. Revise and increase breathing treatment to duoneb q4 scheduled. 10/25: Will further decrease her IV steroids to q12h and possibly switch her to PO later today is she continues to do better. 10/26/2018-she has history of asthma admitted with asthma exacerbation presently on prednisone 40 mg p.o. twice a day plan is to decrease the dose to 20 mg p.o. twice a day today. 10/27/[id number]-aahg-old female admitted for asthma exacerbation. Presently on 20 mg p.o. twice a day. On examination chest bilateral toes decreased mild wheezing at the lung bases. Much improved compared to yesterday. Plan is to continue the present management today and the plan to do the CT chest without contrast for further evaluation. (3) Hypertension Is this a current diagnosis for this admission?: Yes Plan: Continue HCTZ and losartan. Hold lopressor for now. 10/26/2018-patient blood pressure now is 110/67 presently on hydrochlorothiazide and losartan. Plan is to continue the present management. pt is tachycardic on examination plan is to restart metoprolol. 10/27/2018-patient blood pressure today is 126/80 stable. Presently on hydrochlorothiazide, losartan, metoprolol. Plan is to continue the present management. (4) Diabetes Qualifiers: Diabetes mellitus type: type 2 Is this a current diagnosis for this admission?: Yes Plan: Outpatient regimen of Humalog sliding scale 10/26/2018-patient has history of type 2 diabetes mellitus. Hemoglobin A1c is 5.9. Latest blood sugar is 151 most likely secondary to steroid therapy. Diet compliant with medication was advised that a consult was requested. 10/27/2018-patient's blood sugar this morning is 143. Hemoglobin A1c is 5.9. On prednisone 20 mg p.o. twice daily. Presently on Humalog sliding scale plan is to continue the present management for today. (5) Sleep apnea Is this a current diagnosis for this admission?: Yes Plan: BiPAP and education 10/26/2018-patient has history of sleep apnea not on CPAP or BiPAP at home. Plans to make arrangements for outpatient sleep study. 10/27/2018-patient has history of sleep apnea patient is advised to go for sleep studies as an outpatient. Presently she is off the BiPAP here. Pulse ox is 100% on 2 L. (6) Morbid obesity with BMI of 45.0-49.9, adult Is this a current diagnosis for this admission?: No - Time Time Spent with patient: 25-34 minutes Medications reviewed and adjusted accordingly: Yes Anticipated discharge: Home
[2018-10-27] MEDS: LOSARTAN POTASSIUM 25 MG TABLET PO SCH (09:06)
[2018-10-27] MEDS: METOPROLOL TARTRATE 25 MG TABLET PO SCH (09:06)
[2018-10-27] MEDS: ASPIRIN 81 MG TABLET, ENT COATED PO SCH (09:06)
[2018-10-27] MEDS: PANTOPRAZOLE SODIUM 40 MG TABLET.DR PO SCH (09:06)
[2018-10-27] MEDS: FLUTICASONE/VILANTEROL 100-25 MCG/DOSE IH SCH (09:06)
[2018-10-27] MEDS: CETIRIZINE 10 MG TABLET PO SCH (09:06)
[2018-10-27] MEDS: PREDNISONE 20 MG TABLET PO SCH ×2 (09:06→17:19)
[2018-10-27] MEDS: FLUTICASONE NASAL SPRAY 50 MCG/SPRY 120 SPRAY/16 GM NASL SCH ×2 (09:12→21:35)
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
[2018-10-27] MEDS: LEVOFLOXACIN 750 MG/D5W RTU 750 MG/150 ML RTUPB IV SCH (21:35)
[2018-10-27] MEDS: MONTELUKAST SODIUM 10 MG TABLET PO SCH (21:35)
[2018-10-27] MEDS: ATORVASTATIN CALCIUM 40 MG TABLET PO SCH (21:36)
[2018-10-28] MEDS: IPRATROPIUM/ALBUTEROL 0.5-2.5 MG/3 ML AMPUL NEB SCH ×3 (00:27→08:21)
[2018-10-28 04:40] LABS: HEMATOCRIT 36.5 % (36.0-47.0); HEMOGLOBIN 11.7 g/dL (12.0-15.5); MEAN CORPUSCULAR HEMOGLOBIN 28.2 pg (27.0-33.4); MEAN CORPUSCULAR VOLUME 88 fl (80-97); PLATELET COUNT 279 10^3/uL (150-450); RED BLOOD COUNT 4.15 10^6/uL (3.72-5.28); RED CELL DISTRIBUTION WIDTH 15.5 % (11.5-14.0)
[2018-10-28] MEDS: HEPARIN SOD (PORCINE) 5,000 UNIT/ML 1 ML SYRINGE SUBCUT SCH (05:12)
[2018-10-28 05:53] LABS: ALANINE AMINOTRANSFERASE 18 U/L (9-52); ALKALINE PHOSPHATASE 107 U/L (38-126); ANION GAP 11 (5-19); ASPARTATE AMINO TRANSFERASE 20 U/L (14-36); BILIRUBIN,DIRECT 0.3 mg/dL (0.0-0.4); BILIRUBIN,TOTAL 0.4 mg/dL (0.2-1.3); BLOOD UREA NITROGEN 27 mg/dL (7-20); CALCIUM 9.6 mg/dL (8.4-10.2); CARBON DIOXIDE 31 mmol/L (22-30); CHLORIDE 98 mmol/L (98-107); GLUCOSE 109 mg/dL (75-110); POTASSIUM 4.4 mmol/L (3.6-5.0); SODIUM 139.8 mmol/L (137-145); TOTAL PROTEIN 7.3 g/dL (6.3-8.2)
[2018-10-28] MEDS: INSULIN LISPRO 100 UNIT/ML 3 ML VIAL SUBCUT SCH ×2 (09:12→11:29)
[2018-10-28] MEDS: FLUTICASONE NASAL SPRAY 50 MCG/SPRY 120 SPRAY/16 GM NASL SCH (09:16)
[2018-10-28] MEDS: FLUTICASONE/VILANTEROL 100-25 MCG/DOSE IH SCH (09:17)
[2018-10-28] MEDS: HYDROCHLOROTHIAZIDE 25 MG TABLET PO SCH (09:17)
[2018-10-28] MEDS: LOSARTAN POTASSIUM 25 MG TABLET PO SCH (09:18)
[2018-10-28] MEDS: METOPROLOL TARTRATE 25 MG TABLET PO SCH (09:18)
[2018-10-28] MEDS: CETIRIZINE 10 MG TABLET PO SCH (09:19)
[2018-10-28] MEDS: ASPIRIN 81 MG TABLET, ENT COATED PO SCH (09:19)
[2018-10-28] MEDS: PREDNISONE 20 MG TABLET PO SCH (09:19)
[2018-10-28] MEDS: PANTOPRAZOLE SODIUM 40 MG TABLET.DR PO SCH (09:19)
[2018-10-28 10:46] VITALS: BP 123/68
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
== END 2018-10-28 11:37 | disposition home or self-care (01) | DRG 202 ==
LOC: ER 23:43 → EH 10-24 01:46 → 3W 10-24 02:45
PROVIDERS: ADMIT Internal Medicine; ATTEND Internal Medicine
PROC: 5A09557 Assistance with Respiratory Ventilation, Greater than 96 Consecutive Hours, Continuous Positive Airway Pressure (ICD-10-PCS; principal; 2018-10-24)
PROC: 3E0F73Z Introduction of Anti-inflammatory into Respiratory Tract, Via Natural or Artificial Opening (ICD-10-PCS; 2018-10-24)
DX: J45.51 Severe persistent asthma with (acute) exacerbation (principal); J96.01 Acute respiratory failure with hypoxia; Z68.42 Body mass index [BMI] 45.0-49.9, adult; E11.9 Type 2 diabetes mellitus without complications; G47.33 Obstructive sleep apnea (adult) (pediatric); E66.01 Morbid (severe) obesity due to excess calories; I11.0 Hypertensive heart disease with heart failure; I50.9 Heart failure, unspecified; K21.9 Gastro-esophageal reflux disease without esophagitis; Z79.899 Other long term (current) drug therapy; Z90.710 Acquired absence of both cervix and uterus; Z87.891 Personal history of nicotine dependence; Z88.8 Allergy status to other drugs, medicaments and biological substances; Z79.84 Long term (current) use of oral hypoglycemic drugs; Z88.0 Allergy status to penicillin; Z83.6 Family history of other diseases of the respiratory system
CPT/HCPCS: 36415; 71045; 71250; 80048; 80053; 82962; 83036; 83735; 83880; 84439; 84443; 84481; 85025; 85027; 93005; 93010; 94640; 94660; 94799; 96365; 96375; 99291; J1644; J1815; J1940; J1956; J2920; J2930; J3475; J3480; J3490; J7030; J7512; J7620